=== PATIENT | male | born 1990 | race Hispanic/Latino ===

== ENCOUNTER 2017-04-07 17:02 | Emergency (ER) | payer OTHER, BC ==
[2017-04-07 17:23] VITALS: BP 129/86; PULSE 83; RESP 16; TEMP 98.3; O2SAT 100
--- NOTE | 2017-04-07 19:14 | ED PDOC ---
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 Patient states he did not take any medications prior to arrival and also reports no prior injury to the affected areas. Patient denies any loss of consciousness, fever, dizziness, nausea, vomiting, abdominal pain, SOB, incontinence, saddle anesthesia, numbness/weakness, radiation of the pain, or chest pain. PMD: none provided Past Medical History Reviewed: Historical Data, Nursing Documentation, Vital Signs Vital Signs: Last Vital Signs Temp 98.3 F 04/07/17 17:21 Pulse 83 04/07/17 17:21 Resp 16 04/07/17 17:21 BP 129/86 04/07/17 17:21 Pulse Ox 100 04/07/17 17:21 - Medical History PMH: Asthma Denies: HTN, Chronic Kidney Disease - Surgical History Surgical History: No Surg Hx - Family History Family History: States: Unknown Family Hx - Living Arrangements Living Arrangements: With Family - Social History Current smoker - smoking cessation education provided: No Alcohol: None Drugs: Denies - Home Medications Home Medications: Ambulatory Orders Medication Instructions Recorded Cyclobenzaprine [Cyclobenzaprine 10 mg PO TID PRN #12 tab 04/07/17 HCl] Ibuprofen [Motrin Tab] 800 mg PO Q8 PRN #21 tab 04/07/17 - Allergies Allergies/Adverse Reactions: Allergies Allergy/AdvReac Type Severity Reaction Status Date / Time Penicillins Allergy RASH Verified 04/07/17 17:21 Review of Systems ROS Statement: Except As Marked, All Systems Reviewed And Found Negative Constitutional: Negative for: Fever Cardiovascular: Negative for: Chest Pain, Palpitations Respiratory: Negative for: Cough, Shortness of Breath Gastrointestinal: Negative for: Nausea, Vomiting, Abdominal Pain Genitourinary Male: Negative for: Incontinence Musculoskeletal: Positive for: Arm Pain (right elbow), Back Pain (lower) Neurological: Positive for: Other. Negative for: Weakness, Numbness, Confusion , Altered Mental Status, Dizziness (or LOC) Physical Exam - Reviewed Nursing Documentation Reviewed: Yes Vital Signs Reviewed: Yes - Physical Exam Appears: Positive for: Non-toxic, No Acute Distress, Uncomfortable Head Exam: Positive for: ATRAUMATIC ((-) scalp tenderness (-) scalp hematoma), NORMOCEPHALIC Skin: Positive for: Normal Color, Warm, Dry. Negative for: Diaphoresis Eye Exam: Positive for: EOMI, PERRL ENT: Positive for: Other (Mucus membranes moist) Neck: Positive for: Painless ROM ((-) vertebral tenderness), Supple Cardiovascular/Chest: Positive for: Regular Rate, Rhythm, Chest Non Tender. Negative for: Bradycardia, Tachycardia Respiratory: Positive for: Normal Breath Sounds. Negative for: Decreased Breath Sounds, Accessory Muscle Use, Wheezing, Respiratory Distress Gastrointestinal/Abdominal: Positive for: Normal Exam, Soft. Negative for: Tenderness, Mass, Distended, Guarding Back: Positive for: Muscle Spasm (left-sided (+) left paralumbar tenderness). Negative for: Decreased ROM, Other (midline tenderness) Extremity: Positive for: Normal ROM (right shoulder, elbow, and wrist however pain worsens with flexion and supination of elbow), Tenderness (diffusely to right elbow), Capillary Refill (< 2 seconds in all digits of right upper extremity. Sensation intact throughout. (-) distal NV deficit.). Negative for: Deformity (or effusion, ecchymosis or crepitus of right elbow), Swelling Neurologic/Psych: Positive for: Alert, barrel charrer helper II-XII (intact), Oriented (x3), Gait (steady), Other (5/5 clinical product manager strength bilaterally). Negative for: Motor/Sensory Deficits, Aphasia, Facial Droop - ECG O2 Sat by Pulse Oximetry: 100 (RA) Pulse Ox Interpretation: Normal Medical Decision Making Medical Decision Making: Initial Impression: Acute lower back and elbow pain S/P fall Initial Plan: * Flexeril 10mg PO (Patient states he will not be driving home and has a ride with girlfriend at bedside) * Toradol 60mg IM * Xray elbow (right) Time: 1929 --Xray: interpreted by provider. Negative for fracture or dislocation. Patient notified that official radiology read will be available within 24 hours and that he would be notified of any discrepancies from preliminary reading in ED. Diagnostics discussed with patient with demonstrated understanding. --Upon provider re-evaluation, patient is feeling better, medically stable, and requires no further treatment in the ED at this time. Patient will be discharged home with Rx for Cyclobenzapine HCL and Motrin 800mg. Counseling was provided and all questions were answered regarding diagnosis and need for follow up with orthopedics if symptoms persist or worsen. There is agreement to discharge plan. Clinical Impression: Acute back pain; Right elbow pain/contusion; Back muscle spasm s/p fall Scribe Attestation: Documented by Lola Tripathi, acting as a scribe for Ayesha Bolaños PA-C. Provider Scribe Attestation: All medical record entries made by the Scribe were at my direction and personally dictated by me. I have reviewed the chart and agree that the record accurately reflects my personal performance of the history, physical exam, medical decision making, and the department course for this patient. I have also personally directed, reviewed, and agree with the discharge instructions and disposition. Disposition - Clinical Impression Clinical Impression: Back pain, acute, Elbow pain, right, Fall (on) (from) other stairs and steps, initial encounter, Muscle spasm of back - Patient ED Disposition Is Patient to be Admitted: No Counseled Patient/Family Regarding: Studies Performed, Diagnosis, Need For Followup, Rx Given - Disposition Referrals: Olegario Soto III, MD [Staff Provider] - Disposition: Routine/Home Disposition Time: 19:33 Condition: STABLE Prescriptions: Cyclobenzaprine [Cyclobenzaprine HCl] 10 mg PO TID PRN #12 tab PRN Reason: spasm Ibuprofen [Motrin Tab] 800 mg PO Q8 PRN #21 tab PRN Reason: Pain, Moderate (4-7) Instructions: Low Back Pain in Adults, Contusion (DC), Active Range of Motion Exercises, Back and Hips Forms: [facility] ([place]), [facility] ED School/Work Excuse Print Language: UZBEK - POA Present On Arrival: None
--- NOTE | 2017-04-08 10:15 | RAD ---
PROCEDURE: Radiographs of the right elbow. HISTORY: trauma COMPARISON: No prior. FINDINGS: BONES: No acute fracture or destructive bony lesion identified. JOINTS: No subluxation or dislocation appreciated. SOFT TISSUES: Normal. JOINT EFFUSION: None. OTHER FINDINGS: None. IMPRESSION: Unremarkable radiographs of the right elbow.
== END 2017-04-07 20:02 | disposition home or self-care (01) ==
LOC: H.ER 17:02
DX: M54.9 Dorsalgia, unspecified (principal); S59.901A Unspecified injury of right elbow, initial encounter; W10.9XXA Fall (on) (from) unspecified stairs and steps, initial encounter; Y99.0 Civilian activity done for income or pay; J45.909 Unspecified asthma, uncomplicated; Z88.0 Allergy status to penicillin
CPT/HCPCS: 73080; 96372; 99282; J1885